=== PATIENT | male | born 1965 | race Caucasian/White ===

== ENCOUNTER 2019-08-14 15:42 | Outpatient (CLI) | payer OTHER, SELFPAY ==
--- NOTE | 2019-08-14 16:05 | MRR_ITS ---
PROCEDURE INFORMATION: Exam: MR Lumbar Spine Without Contrast. Exam date and time: 08/14/2019 5:42 PM Age: 54 years old Clinical indication: Pain; Lumbago with sciatica; Left; Additional info: Lumbar region radiculopathy, left leg pain, pain w/ twisting. Injuried while heavy lifting TECHNIQUE: Imaging protocol: Multiplanar magnetic resonance images of the lumbar spine without intravenous contrast. COMPARISON: No relevant prior studies available. FINDINGS: Vertebrae: See below. Spinal cord: Normal signal. No cord compression. L1-L2: There is mild disc bulging. There is facet arthropathy and ligamentum flavum hypertrophy. L2-L3: There is mild disc bulging. There is facet arthropathy and ligamentum flavum hypertrophy. There is mild spinal canal stenosis. L3-L4: There is degenerative disc disease including disc space narrowing and dessication. There is moderate disc bulging. Disc bulging extends into both neural foramen causing mild/moderate bilateral neural foraminal narrowing. There is facet arthropathy and ligamentum flavum hypertrophy. There is moderate spinal canal stenosis. L4-L5: There is disc desiccation. There is moderate disc bulging. There is a superimposed left foraminal disc herniation. There is moderate left-sided neuroforaminal narrowing. There is mild right-sided neuroforaminal narrowing. There is facet arthropathy and ligamentum flavum hypertrophy. There is mild spinal canal stenosis. L5-S1: There is degenerative disc disease including disc space narrowing and dessication. There is a moderate disc bulge . There is a superimposed left foraminal disc herniation. There is moderate left-sided neuroforaminal narrowing. Other bones/joints: The bone marrow is heterogeneous. This is a nonspecific finding. This can be seen in the setting of an infiltrative marrow process, including malignancy. Kidneys and ureters: There is a retroaortic left renal vein. Soft tissues: Unremarkable. MR/MR lumbar spine wo con* [id number] IMPRESSION: 1. Multilevel degenerative changes causing variable degrees of spinal canal and neuroforaminal narrowing as described above. 2. The bone marrow is heterogeneous. This is a nonspecific finding. This can be seen in the setting of an infiltrative marrow process, including malignancy. Please correlate with the presence of any known malignancy.
== END 2019-08-14 15:43 | disposition home or self-care (01) ==
LOC: RADSHAW 15:53
PROVIDERS: Family Provider Nurse Practitioner; PCP Nurse Practitioner; Visit Provider Nurse Practitioner
DX: M54.16 Radiculopathy, lumbar region (principal); M47.896 Other spondylosis, lumbar region
CPT/HCPCS: 72148

== ENCOUNTER → 2020-05-23 14:50 | Outpatient (BNVA) | payer OTHER, SELFPAY | PROVIDERS: Family Provider Nurse Practitioner; PCP Nurse Practitioner; Visit Provider Nurse Practitioner Family | DX: Z11.59 Encounter for screening for other viral diseases (principal) | CPT/HCPCS: 87635 ==

== ENCOUNTER → 2022-05-18 08:55 | Outpatient (BNVA) | payer OTHER, SELFPAY | PROVIDERS: Family Provider Nurse Practitioner; PCP Family Medicine; Visit Provider Family Medicine | DX: I10 Essential (primary) hypertension (principal) | CPT/HCPCS: 80053; 80061; 83036 ==

== ENCOUNTER → 2023-03-19 13:12 | Outpatient (BNVA) | payer OTHER, SELFPAY | PROVIDERS: Family Provider Nurse Practitioner; PCP Family Medicine; Visit Provider Family Medicine | DX: M25.571 Pain in right ankle and joints of right foot (principal) | CPT/HCPCS: 80048; 84550; 85025; 86140 ==

== ENCOUNTER 2023-04-02 08:38 | Emergency (ER) | payer OTHER, SELFPAY ==
--- NOTE | 2023-04-02 08:46 | ED_ITS ---
HPI - General Adult General: Chief complaint: General Medical Stated complaint: Spurling sent for BP issues Time Seen by Provider: 04/02/23 08:41 Source: patient Mode of arrival: ambulatory History of Present Illness: 57-year-old male presents emergency room with occasional palpitations and elevated blood pressure. He was at work today they checked it was significantly elevated which she was primary care doctor was redirected to the emergency room he has been having some palpitations but no chest pain no shortness of breath no focal neurologic deficits no difficulty speech swallowing vision gait or ataxia this. He is currently on lisinopril hydrochlorothiazide but he been monitoring at home and did not been adequately controlling his blood pressure and was to be seen by his primary care for medication adjustments. Relieving factors: none Exacerbating factors: none Associated symptoms: Reports palpitations; Deny chest pain, confusion, cough, diaphoresis, decreased appetite, dyspnea, fevers/chills, headache(s), malaise, nausea, rash, seizures, short of breath, syncope, vomiting or weakness Review of Systems Const: Denies: fever(s), chills, malaise or diaphoresis Card: Reports: palpitations; Denies: chest pain or syncope Resp: Denies: dyspnea GI: Reports: abdominal pain; Denies: nausea or vomiting Skin/Breast: Denies: rash Neuro: Denies: headache(s) or confusion PFS ED PFSH: Medical History Hypertension Physical Exam Const: GENERAL APPEARANCE: cooperative and comfortable ORIENTATION/CONSCIOUSNESS: Yes awake, Yes oriented to person, Yes oriented to place and Yes oriented to time HENMT: COMMON NORMALS: normocephalic, atraumatic and hearing grossly normal bilaterally HEAD & SCALP: normocephalic and atraumatic Resp: COMMON NORMALS: normal respiratory effort, No retractions, No use of accessory muscles and clear to auscultation bilaterally AUSCULTATION: clear to auscultation bilaterally Cardio: COMMON NORMALS: regular rate, regular rhythm and No murmurs present (Cardio) RATE: regular rate RHYTHM: regular rhythm GI: COMMON NORMALS: Soft to palpation and No hepatosplenomegaly present AUSCULTATION: Yes normoactive bowel sounds PALPATION: Yes Soft to palpation, No Tenderness to palpation present (GI), No Guarding due to palpation present (GI) and Yes No hepatosplenomegaly present Extremity: COMMON NORMALS: normal to inspection, capillary refill normal, no clubbing, cyanosis or edema, no calf tenderness and no pedal edema Neuro: SENSORIUM/ORIENTATION: Yes oriented to person, Yes oriented to place and Yes oriented to time OTHER: Neurologically intact no focal logic deficits are noted no weakness in extremities normal facial symmetry cranial nerves II to XII grossly intact. Skin: COMMON NORMALS: no rashes or lesions noted GENERAL SKIN EXAM: no rashes or lesions noted Course Vital Signs: Vital signs: Vital Signs Pulse Rate 75 04/02/23 10:01 Respiratory Rate 13 04/02/23 10:01 Blood Pressure 163/87 04/02/23 10:01 Pulse Oximetry 97 04/02/23 10:01 Oxygen Delivery Me thod Room Air 04/02/23 09:50 MDM - General Adult Medical Decision Making Blood pressure improved with interventions in the emergency room patient is feeling better will discharge home changing from lisinopril hydrochlorothiazide to lisinopril 20 mg daily add amlodipine 10 mg daily and Toprol-XL 25 daily. Discussed with the patient has been given doses of these medicines today he should starts his new regimen tomorrow continue to monitor blood pressures at home follow-up with his primary care doctor within the next week to reevaluate blood pressure. Medical Records I reviewed the patient's medical records. Lab Data I reviewed the patient's lab results. 04/02/23 08:54 04/02/23 08:54 Laboratory Results WBC 8.5 10^3/uL (4.0-10.0) 04/02/23 08:54 RBC 5.49 10^6/uL (4.1-5.3) H 04/02/23 08:54 Hgb 15.5 g/dL (11.7-16.6) 04/02/23 08:54 Hct 46.3 % (42.0-52.0) 04/02/23 08:54 MCV 84.3 fl (80-94) 04/02/23 08:54 MCH 28.2 pg (28.0-34.0) 04/02/23 08:54 MCHC 33.5 g/dL (30.0-36.0) 04/02/23 08:54 RDW 12.5 % (12.1-15.1) 04/02/23 08:54 Plt Count 281 10^3/cmm (130-400) 04/02/23 08:54 MPV 8.7 fL (7.4-10.4) 04/02/23 08:54 Neut % (Auto) 61.0 % 04/02/23 08:54 Lymph % (Auto) 29.5 % 04/02/23 08:54 [place] % (Auto) 6.6 % 04/02/23 08:54 Eos % (Auto) 1.6 % 04/02/23 08:54 Baso % (Auto) 0.6 % 04/02/23 08:54 Neut # (Auto) 5.18 10^3/uL (1.8-7.7) 04/02/23 08:54 Lymph # (Auto) 2.5 10^3/uL (0.8-4.8) 04/02/23 08:54 [place] # (Auto) 0.6 10^3/uL (0.2-0.9) 04/02/23 08:54 Eos # (Auto) 0.1 10^3/uL (0.0-0.8) 04/02/23 08:54 Baso # (Auto) 0.1 10^3/uL (0.0-0.1) 04/02/23 08:54 Nucleated RBC % (auto) 0 % 04/02/23 08:54 Nucleated RBCs # 0.0 /100WBC 04/02/23 08:54 Sodium 135 mmol/L (136-145) L 04/02/23 08:54 Potassium 3.6 mmol/L (3.5-5.1) 04/02/23 08:54 Chloride 98 mmol/L (98-107) 04/02/23 08:54 Carbon Dioxide 26 mmol/L (22-29) 04/02/23 08:54 Anion Gap 14.6 (5-19) 04/02/23 08:54 BUN 12 mg/dL (6-20) 04/02/23 08:54 Creatinine 0.7 mg/dL (0.7-1.2) 04/02/23 08:54 GFR Calculation 117.1 mL/min (90-130) 04/02/23 08:54 Glucose 314 mg/dL (65-115) H 04/02/23 08:54 Calculated Osmolality 292 mOsm/kg (285-295) 04/02/23 08:54 Calcium 9.7 mg/dL (8.5-10.5) 04/02/23 08:54 Urine Color Straw (Yellow) 04/02/23 09:30 Urine Appearance Clear (CLEAR) 04/02/23 09:30 Urine pH 5 (5-7) 04/02/23 09:30 Ur Specific Ord 1.020 (1.005-1.030) 04/02/23 09:30 Urine Protein Neg (Negative) 04/02/23 09:30 Urine Glucose (UA) 4+ (Normal) H 04/02/23 09:30 Urine Ketones Negative (Negative) 04/02/23 09:30 Urine Blood Neg (Negative) 04/02/23 09:30 Urine Nitrate Negative (Negative) 04/02/23 09:30 Urine Bilirubin Neg (Negative) 04/02/23 09:30 Urine Urobilinogen Norm mg/dL (Negative) 04/02/23 09:30 Ur Leukocyte Esterase Negative (Negative) 04/02/23 09:30 Discharge Plan Discharge Patient Disposition: Home Clinical Impression: Hypertension Condition: Stable Prescriptions: New amlodipine 10 mg tablet 10 mg PO DAILY Qty: 30 0RF Toprol XL 25 mg tablet extended release 24 hr 25 mg PO DAILY Qty: 30 0RF lisinopril 20 mg tablet 20 mg PO DAILY Qty: 30 0RF Discontinued lisinopril-hydrochlorothiazide 10-12.5 mg tablet 1 tab PO QAM No Action Aleve 220 mg Tablet 440 mg PO Q12H PRN (Reason: Pain) Discharge Orders: Discharge ED (Routine); Ordered 04/02/23 Ordered By: Torey Caicedo Referrals: Derick Castillo MD [Primary Care Provider] - Discharge Diet: Cardiac Discharge Activity: Increase activity as tolerated Patient Instructions: Opioid Safety, Pain Management Activity Restrictions/Additional Instructions: Stop your lisinopril hydrochlorothiazide and change to lisinopril 20 mg daily. Additionally you were given amlodipine 10 mg daily, you were given a dose today start the prescription tomorrow. Also start Toprol-XL 25 p.o. daily. You were given a dose of that medication today in the emergency room as well. Begin the new prescription tomorrow. Recheck your blood pressure within 1 week with your primary care doctor return to the emergency room if further problems. 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
--- NOTE | 2023-04-02 08:46 | XR_ITS ---
WS: [id number] EXAMINATION: XR chest 1V portable [id number] REASON FOR EXAM: dyspnea/cough COMPARISON: 01/11/2015 ORDER DATE: 04/02/2023 8:56 AM TECHNIQUE: A single, portable frontal chest x-ray was obtained. X-RAY FINDINGS: The lungs are clear. Pleural spaces are clear. No pleural effusions or pneumothorax. Cardiomediastinal silhouette is normal. No evidence for pulmonary edema. Soft tissue and osseous structures are unremarkable. There are old rib fracture changes on the right. IMPRESSION: Unremarkable frontal portable chest x-ray.
[2023-04-02 08:49] VITALS: BP 242/135; PULSE 84; RESP 12; O2SAT 97
[2023-04-02 09:00] LABS: Basophils # 0.1 10^3/uL (0.0-0.1); Basophils % 0.6 %; Eosinophils # 0.1 10^3/uL (0.0-0.8); Eosinophils % 1.6 %; Hematocrit 46.3 % (42.0-52.0); Hemoglobin 15.5 g/dL (11.7-16.6); Lymphocytes # 2.5 10^3/uL (0.8-4.8); Lymphocytes % 29.5 %; Mean Corpuscular HGB Conc 33.5 g/dL (30.0-36.0); Mean Corpuscular Hemoglobin 28.2 pg (28.0-34.0); Mean Corpuscular Volume 84.3 fl (80-94); Mean Platelet Volume 8.7 fL (7.4-10.4); Monocytes # 0.6 10^3/uL (0.2-0.9); Monocytes % 6.6 %; Neutrophils # 5.18 10^3/uL (1.8-7.7); Nucleated Red Blood Cells % 0 %; Platelet Count 281 10^3/cmm (130-400); Red Blood Count 5.49 10^6/uL (4.1-5.3); Red Cell Distribution Width 12.5 % (12.1-15.1); White Blood Count 8.5 10^3/uL (4.0-10.0)
--- NOTE | 2023-04-02 09:00 | ECG_ITS ---
Test Date: 2023-04-02 Pat Name: Jarek Yoo Department: Room: Gender: Male Vp Sales: : 1965 Requested By: Torey Jesus Order Number: [id number] Fransisco MD: Marco Antonio Chaves M.D. Measurements Intervals [place] Rate: 75 P: 47 NE: 187 QRS: -8 QRSD: 112 T: 48 QT: 399 QTc: 446 Interpretive Statements SINUS RHYTHM MODERATE INTRAVENTRICULAR CONDUCTION DELAY [110+ ms QRS DURATION] No previous ECG available for comparison Electronically Signed On 04-03-2023 19:56:02 CDT by Marco Antonio Chaves M.D. [email or web address]/[id number]
[2023-04-02] MEDS: amlodipine 10 mg Tablet PO (09:06)
[2023-04-02] MEDS: metoprolol succinate ER (24 HR) 25 mg Tablet PO (09:06)
[2023-04-02] MEDS: hyDRALAzine 20 mg/mL INJ 1 mL IVP (09:07)
[2023-04-02] MEDS: labetalol 5 mg/mL SDV 20mL 10 MG IVP (09:08)
--- NOTE | 2023-04-02 09:15 | PC.NURSE ---
PT BP UPON MED PUSH WAS 206/142
[2023-04-02 09:25] VITALS: BP 192/100; PULSE 78
[2023-04-02 09:27] LABS: Anion Gap 14.6 (5-19); Blood Urea Nitrogen 12 mg/dL (6-20); Calcium 9.7 mg/dL (8.5-10.5); Carbon Dioxide 26 mmol/L (22-29); Chloride 98 mmol/L (98-107); Glomerular Filtration Rate 117.1 mL/min (90-130); Glucose 314 mg/dL (65-115); Osmolality Calculated 292 mOsm/kg (285-295); Potassium 3.6 mmol/L (3.5-5.1); Sodium 135 mmol/L (136-145)
--- NOTE | 2023-04-02 09:27 | PC.PHAR ---
PT STATE HE TAKES CARE OF HIS OWN MEDICATIONS-EXT SHOWS METFORMIN ER 500MG DAILY FILLED 08/27/22 90D/S AND LIPITOR 10MG QPM FILLED 08/27/22 90D/S PT STATES NOT TAKEN SINCE MAYBE SEP 2022 STATES HE JUST DOESNT TAKE AND WASNT SURE WHAT IT WAS FOR
[2023-04-02 09:34] LABS: Add Urine Microscopic? NO; Charge for UA Resulting for Rev
[2023-04-02 09:41] LABS: Protein Urine Neg (Negative); Urine Appearance Clear (CLEAR); Urine Color Straw (Yellow); pH Urine 5 (5-7)
[2023-04-02 09:42] LABS: Bilirubin Urine Neg (Negative); Blood Urine Neg (Negative); Glucose Urine UA 4+ (Normal); Ketones Urine Negative (Negative); Leukocyte Esterase Urine Negative (Negative); Nitrate Urine Negative (Negative); Urobilinogen Urine Norm (Negative)
[2023-04-02 09:50] VITALS: BP 163/101; PULSE 74; RESP 17; O2SAT 97
--- NOTE | 2023-04-02 09:56 | PC.NURSE ---
BLOOD PRESSURE TAKEN PRIOR TO MED, BP 132/82, OKAYED TO NOT GIVE MED
[2023-04-02 10:01] VITALS: BP 163/87; PULSE 75; RESP 13; O2SAT 97
== END 2023-04-02 10:05 | disposition home or self-care (01) ==
PROVIDERS: Emergency Provider Family Medicine; PCP Family Medicine
DX: I10 Essential (primary) hypertension (principal)
CPT/HCPCS: 71045; 80048; 81003; 85025; 93005; 96374; 96375; 99285; J0360; J3490

== ENCOUNTER → 2024-11-09 16:06 | Outpatient (BNVA) | payer OTHER, SELFPAY | PROVIDERS: PCP Family Medicine; Visit Provider Family Medicine | DX: R42 Dizziness and giddiness (principal); R73.9 Hyperglycemia, unspecified | CPT/HCPCS: 80053; 80061; 83036; 85025 ==

== ENCOUNTER 2025-03-21 17:30 | Emergency (ER) | payer OTHER, SELFPAY ==
[2025-03-21 17:38] VITALS: BP 173/82; PULSE 74; RESP 16; TEMP 36.6; O2SAT 98; BMI 33.6
[2025-03-21 18:20] VITALS: BP 178/100; PULSE 71; RESP 14; O2SAT 96
[2025-03-21 18:30] VITALS: BP 154/97; PULSE 68; RESP 12; O2SAT 95
--- NOTE | 2025-03-21 19:34 | W.ED.CHESTPA ---
HPI - Chest Pain General: Chief Complaint: Chest Pain Stated Complaint: chest pain Time Seen by Provider: 03/21/25 17:40 History of Present Illness: Patient is a 59 year old male without any previous cardiac history who presents to the ED with complaint of chest pain that has since resolved during the visit. Patient describes the pain as a numbness in the chest area with associated numbness radiating to the arm. Associated symptoms include lightheadedness, mild shortness of breath, and nausea. Patient reports one episode of diaphoresis with similar symptoms in the past. Patient states this is a recurrent issue, occurring approximately every 2-3 months, with symptoms typically self-resolving. No prior cardiac workup for these specific episodes. Patient denies taking any medications for symptom relief such as nitroglycerin or NSAIDs. Patient has a history of hypertension for which he takes an unspecified antihypertensive medication that includes a diuretic component. Patient also reports having 'borderline sugar' (prediabetes/diabetes) and has been working on diet modifications with successful weight loss. No history of myocardial infarction or coronary artery disease reported. No known drug allergies. Related Data Home Medications ?Medication ?Instructions ?Recorded ?Confirmed naproxen sodium 220 mg tablet 440 mg PO Q12H PRN Pain 04/02/23 02/15/25 (Aleve) Previous Rx's ?Medication ?Instructions ?Recorded amlodipine 10 mg tablet 10 mg PO DAILY #30 tabs 04/16/24 lisinopril 20 mg tablet 20 mg PO DAILY #30 tabs 04/16/24 Allergies Allergy/AdvReac Type Severity Reaction Status Date / Time No Known Allergies Allergy Verified 04/02/23 09:26 Review of Systems General: Reports: 10 or more systems reviewed and unremarkable except in HPI and below PFSH ED PFSH: Medical History (Updated 03/21/25 @ 21:22 by Jona Cooper DO) Diabetes type 2, uncontrolled Hypertension Social History Smoking and tobacco/nicotine status: never used tobacco/nicotine Physical Exam Const: COMMON NORMALS: no acute distress, patient oriented x3, alert and well nourished HENMT: COMMON NORMALS: normocephalic HEAD & SCALP: normocephalic Eye: COMMON NORMALS: Equal, round and reactive pupils present, EOMs intact bilaterally and conjunctivae normal CONJUNCTIVA: Yes conjunctivae normal PUPIL: Yes Equal, round and reactive pupils present Neck/C-Spine: COMMON NORMALS: no JVD Chest: COMMONS NORMALS: normal inspection of the chest and normal palpation of entire chest wall Resp: COMMON NORMALS: normal respiratory effort, No retractions, No use of accessory muscles, clear to auscultation bilaterally and percussion normal AUSCULTATION: clear to auscultation bilaterally PERCUSSION: percussion normal Cardio: COMMON NORMALS: no JVD, regular rate and regular rhythm RATE: regular rate RHYTHM: regular rhythm GI: COMMON NORMALS: Normal to inspection, nondistended, normoactive bowel sounds present, Soft to palpation, non-tender, No hepatosplenomegaly present, no masses and no bruits PALPATION: Yes Soft to palpation and Yes No hepatosplenomegaly present Extremity: COMMON NORMALS: normal to inspection, full ROM, capillary refill normal, no joint enlargement, no clubbing, cyanosis or edema, no calf tenderness and no pedal edema Neuro: COMMON NORMALS: patient oriented x3 SENSORIUM/ORIENTATION: Yes alert Skin: COMMON NORMALS: no rashes or lesions noted, turgor normal and no jaundice GENERAL SKIN EXAM: no rashes or lesions noted and turgor normal Course Vital Signs: Vital signs: Vital Signs Temperature 97.9 F 03/21/25 17:38 Pulse Rate 64 03/21/25 21:36 Respiratory Rate 14 03/21/25 20:28 Blood Pressure 183/99 03/21/25 21:36 Pulse Oximetry 96 03/21/25 21:36 Oxygen Delivery Me thod Room Air 03/21/25 20:28 MDM - Chest Pain Medical Decision Making 1. Chest Pain - Atypical presentation with numbness, radiation to arm, and associated symptoms concerning for possible cardiac etiology. Symptoms resolved during ED visit. Initial EKG without acute changes, but awaiting cardiac enzyme results to rule out acute coronary syndrome. Will continue cardiac monitoring during ED stay. 2. Hypertension - Chronic, currently on medication therapy. Blood pressure noted to be mildly elevated during visit. Will review home medication regimen and adherence. Consider adjustment of antihypertensive medications if blood pressure remains elevated. 3. Prediabetes/Diabetes - Patient reports 'borderline sugar' with recent weight loss and dietary modifications. Will check blood glucose levels and HbA1c if not recently done. Continue to encourage lifestyle modifications. 4. Plan: - Complete cardiac workup including serial cardiac enzymes, repeat EKG as needed Patient's twelve-lead EKG reveals a normal sinus rhythm without any ST elevation or significant depression or arrhythmia present. Patient's serial cardiac enzymes were normal. Patient had a nondiagnostic workup in the emergency department. He continued to deny any significant symptoms. The patient's blood pressure was mildly elevated here in the department but again he was asymptomatic. We discussed the narrow differential diagnosis as well as the need for continued follow-up and workup. The patient sees the area physician by the name of Dr. 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 Differential Diagnosis Likely acute massive pulmonary embolism, acute respiratory failure and acute myocardial infarction Lab Data 03/21/25 17:54 03/21/25 17:54 Laboratory Results WBC 8.62 10^3/uL (3.29-11.43) 03/21/25 17:54 RBC 4.96 10^6/uL (3.85-5.65) 03/21/25 17:54 Hgb 14.20 g/dL (11.27-16.99) 03/21/25 17:54 Hct 41.8 % (37-53) 03/21/25 17:54 MCV 84.3 fl (82-101) 03/21/25 17:54 MCH 28.6 pg (27-33) 03/21/25 17:54 MCHC 34.0 g/dL (30-55) 03/21/25 17:54 RDW 12.5 % (12.1-15.1) 03/21/25 17:54 Plt Count 307 10^3/cmm (157-399) 03/21/25 17:54 MPV 9.2 fL (7.4-10.4) 03/21/25 17:54 Neut % (Auto) 69.4 % 03/21/25 17:54 Lymph % (Auto) 22.2 % 03/21/25 17:54 [place] % (Auto) 6.0 % 03/21/25 17:54 Eos % (Auto) 1.3 % 03/21/25 17:54 Baso % (Auto) 0.6 % 03/21/25 17:54 Neut # (Auto) 5.99 10^3/uL (1.8-7.7) 03/21/25 17:54 Lymph # (Auto) 1.9 10^3/uL (0.8-4.8) 03/21/25 17:54 [place] # (Auto) 0.5 10^3/uL (0.2-0.9) 03/21/25 17:54 Eos # (Auto) 0.1 10^3/uL (0.0-0.8) 03/21/25 17:54 Baso # (Auto) 0.1 10^3/uL (0.0-0.1) 03/21/25 17:54 Nucleated RBC % (auto) 0 % 03/21/25 17:54 Nucleated RBCs # 0.0 /100WBC 03/21/25 17:54 Sodium 138 mmol/L (136-145) 03/21/25 17:54 Potassium 4.0 mmol/L (3.5-5.1) 03/21/25 17:54 Chloride 102 mmol/L (98-107) 03/21/25 17:54 Carbon Dioxide 26 mmol/L (22-29) 03/21/25 17:54 Anion Gap 14.0 (5-19) 03/21/25 17:54 BUN 14 mg/dL (6-20) 03/21/25 17:54 Creatinine 0.8 mg/dL (0.7-1.2) 03/21/25 17:54 GFR Calculation 99.6 mL/min (90-130) 03/21/25 17:54 Glucose 163 mg/dL (65-115) H 03/21/25 17:54 Calculated Osmolality 290 mOsm/kg (285-295) 03/21/25 17:54 Calcium 8.9 mg/dL (8.5-10.5) 03/21/25 17:54 Total Bilirubin 0.4 mg/dL (0.15-1.2) 03/21/25 17:54 AST 14 U/L (0-40) 03/21/25 17:54 ALT 17 U/L (0-41) 03/21/25 17:54 Alkaline Phosphatase 78 U/L (40-130) 03/21/25 17:54 Troponin T Baseline 7 ng/L (0-15) 03/21/25 17:54 Troponin T 120 Minute < 6.0 ng/L (0-15) 03/21/25 20:00 Delta Troponin T -1.05386 ABS# (0-10) L 03/21/25 20:00 NT-Pro-B Natriuret Pep 51 pg/mL (0-125) 03/21/25 17:54 Total Protein 7.2 g/dL (6.6-8.7) 03/21/25 17:54 Albumin 4.4 g/dL (3.5-5.2) 03/21/25 17:54 Globulin 2.8 g/dL (1.3-4.6) 03/21/25 17:54 No radiology studies performed this visit Discharge Plan Discharge Patient Disposition: Home Clinical Impression: Hypertension, Atypical chest pain Condition: Stable Prescriptions: No Action lisinopril 20 mg tablet 20 mg PO DAILY Qty: 30 11RF amlodipine 10 mg tablet 10 mg PO DAILY Qty: 30 11RF Aleve 220 mg Tablet 440 mg PO Q12H PRN (Reason: Pain) Discharge Orders: Discharge ED (Routine); Ordered 03/21/25 Ordered By: Jona Cooper Referrals: Derick Castillo MD [Primary Care Provider, [facility]] Discharge Diet: Advance as tolerated Discharge Activity: Resume usual activity Patient Instructions: Opioid Safety, Pain Management, Patient Portal & Ryan Instructions Activity Restrictions/Additional Instructions: 1. Rest, monitor blood pressure, take home medications as directed. Start low dose aspirin 81mg daily until further discussion with PCP. 2. Call PCP in AM for follow up appointment and further work up. 3. Return for new or worsening symptoms. 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
--- NOTE | 2025-03-21 19:47 | ECG_ITS ---
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 Measurements Intervals [place] Rate: 73 P: 52 UT: 168 QRS: -14 QRSD: 101 T: 49 QT: 400 QTc: 441 Interpretive Statements SINUS RHYTHM Compared to ECG 04/02/2023 09:00:59 Intraventricular conduction delay no longer present Electronically Signed On 03-23-2025 08:14:40 CDT by Marco Antonio Chaves M.D. [email or web address] [id number]
[2025-03-21 19:54] LABS: Hematocrit 41.8 % (37-53); Hemoglobin 14.20 g/dL (11.27-16.99); Mean Corpuscular HGB Conc 34.0 g/dL (30-55); Mean Corpuscular Hemoglobin 28.6 pg (27-33); Mean Corpuscular Volume 84.3 fl (82-101); Nucleated Red Blood Cells % 0 %; Platelet Count 307 10^3/cmm (157-399); Red Blood Count 4.96 10^6/uL (3.85-5.65); White Blood Count 8.62 10^3/uL (3.29-11.43)
[2025-03-21 20:07] LABS: Troponin(5th) Baseline 7 ng/L (0-15)
[2025-03-21 20:24] LABS: Troponin 5 2HR < 6.0 ng/L (0-15); Troponin 5 2HR Delta -1.00001 ABS# (0-10)
[2025-03-21 20:24] LABS: Alanine Aminotransferase 17 U/L (0-41); Albumin Level 4.4 g/dL (3.5-5.2); Alkaline Phosphatase 78 U/L (40-130); Anion Gap 14.0 (5-19); Aspartate Amino Transferase 14 U/L (0-40); Blood Urea Nitrogen 14 mg/dL (6-20); Calcium 8.9 mg/dL (8.5-10.5); Carbon Dioxide 26 mmol/L (22-29); Chloride 102 mmol/L (98-107); Creatinine Clr Calc Pharmacy 139.5674; Globulin 2.8 g/dL (1.3-4.6); Glucose 163 mg/dL (65-115); NT Pro B Type Natriuretic Pept 51 pg/mL (0-125); Osmolality Calculated 290 mOsm/kg (285-295); Potassium 4.0 mmol/L (3.5-5.1); Sodium 138 mmol/L (136-145); Total Protein 7.2 g/dL (6.6-8.7)
[2025-03-21 20:28] VITALS: BP 145/85; PULSE 66; RESP 14; O2SAT 95
[2025-03-21 21:36] VITALS: BP 183/99; PULSE 64; O2SAT 96
== END 2025-03-21 21:37 | disposition home or self-care (01) ==
PROVIDERS: Emergency Provider Family Medicine; PCP Family Medicine
DX: R07.89 Other chest pain (principal); I10 Essential (primary) hypertension; E11.9 Type 2 diabetes mellitus without complications
CPT/HCPCS: 36415; 80053; 83880; 84484; 85025; 93005; 99284

== ENCOUNTER → 2025-03-22 15:46 | Outpatient (BNVA) | payer OTHER, SELFPAY | PROVIDERS: PCP Family Medicine; Visit Provider Family Medicine | DX: R07.89 Other chest pain (principal) | CPT/HCPCS: 85379 ==

== ENCOUNTER 2025-04-06 07:11 | Outpatient (CLI) | payer OTHER, SELFPAY ==
[2025-04-06 07:33] VITALS: BMI 33.6
--- NOTE | 2025-04-06 07:34 | ECG_ITS ---
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 Interpretive Statements Patient Underwent Treadmill Exercise Testing Under The Marcin Protocol. The patient's resting blood pressure was 156/85 with a heart rate of 66 bpm. The resting EKG showed normal sinus rhythm with no ST-T wave abnormality. The patient exercised for 8 minutes and 8 seconds on the Marcin protocol which is consistent with average exercise capacity for the patient's age. The patient's maximal exercise blood pressure was 162/82 with a heart rate of 143 reaching 10.2 minutes and a 87% of maximal predicted heart rate. There were no signs or symptoms of inducible ischemia by symptoms or stress EKG. In recovery the patient's blood pressure was 156/70 with a heart rate of 98 bpm. Conclusion: 1. Baseline hypertension 2. Normal blood pressure and heart rate response to exercise 3. No inducible ischemia by symptoms or EKG. 4. Average exercise capacity for age. Electronically Signed On 04-06-2025 23:09:32 CDT by Nael Santoyo M.D. [email or web address] [id number]
--- NOTE | 2025-04-06 07:34 | NMCV_ITS ---
NM cristina perf SPECT r/s* [id number] Jarek Yoo Age: 59 Gender: M : 1965 Exam Date: 04/06/2025 08:20 Ordering Phys: Derick Castillo MD Technologist: ACE Werner Exam Location: [facility] Indications: cp STRESS TEST Please see separate stress test report in [facility] for full findings IMAGE PROTOCOL Rest/Stress 1 Exercise Day Radiopharmaceutical Dose (mCi) Administration Site Administered by Rest: Tc-99m 10.6 IV Bisi Nur, OFFAL ICER POULTRY Sestamibi Stress:Tc-99m 33 IV Bisi Nur, OFFAL ICER POULTRY Sestamibi Rest: 06-Apr-2025 60 Discovery 630 Stress: 06-Apr-2025 30 Discovery 630 Radiopharmaceutical was injected at 87 % maximum heart rate. Images obtained in supine and prone position. SPECT RESULTS Technical Quality: Good Raw Data Analysis: Normal Image Corrections: No attenuation or motion correction applied Summed Stress Score: 0 Summed Rest Score: 3 Summed Difference Score: 0 PERFUSION FINDINGS There is a medium sized area of severely reduced tracer counts in the inferior wall on the stress and rest images consistent with infarct versus diaphragmatic attenuation artifact. Normal wall motion in this area on the gated images make the defect more likely artifact. FUNCTIONAL RESULTS (calculated via Gated SPECT) Stress Image LV EF (%): 62 Stress EDV (mL):112 TID: 0.74 Stress ESV (mL):43 FUNCTIONAL FINDINGS: There is normal left ventricular systolic function. IMPRESSIONS 1. Myocardial perfusion images with diaphragmatic attenuation artifact. No infarction or ischemia. 2. Normal left ventricular function, EF 62%. Nael Santoyo MD, FACC (Electronically Signed) Final Date: 06 April 2025 12:13 S
[2025-04-06 09:17] VITALS: BP 168/86; PULSE 99
== END 2025-04-06 07:12 | disposition home or self-care (01) ==
LOC: CDL 07:13
PROVIDERS: PCP Family Medicine; Visit Provider Family Medicine
DX: R07.9 Chest pain, unspecified (principal); R93.1 Abnormal findings on diagnostic imaging of heart and coronary circulation
CPT/HCPCS: 36415; 78452; 93017; A9500